=== PATIENT | female | born 1990 | race Two or more races ===

== ENCOUNTER 2021-07-01 07:29 | Outpatient (CLI) | payer OTHER | END 2021-07-01 07:38 | disposition home or self-care (01) | LOC: SONOGRAMA 07:29 | PROVIDERS: ATTEND Family Medicine | DX: R10.11 Right upper quadrant pain (principal) ==

== ENCOUNTER 2021-07-01 08:21 | Outpatient (CLI) | payer OTHER | END 2021-07-01 08:25 | disposition home or self-care (01) | LOC: LAB 08:21 | PROVIDERS: ATTEND Family Medicine | DX: R10.11 Right upper quadrant pain (principal); B34.9 Viral infection, unspecified; E11.9 Type 2 diabetes mellitus without complications; E78.2 Mixed hyperlipidemia; E03.4 Atrophy of thyroid (acquired); N39.0 Urinary tract infection, site not specified; B99.8 Other infectious disease; J02.9 Acute pharyngitis, unspecified; A53.9 Syphilis, unspecified; Z12.11 Encounter for screening for malignant neoplasm of colon; J11.1 Influenza due to unidentified influenza virus with other respiratory manifestations; J18.0 Bronchopneumonia, unspecified organism; R05.8 Other specified cough; R06.02 Shortness of breath ==